=== PATIENT | female | born 1945 | race Caucasian/White ===

== ENCOUNTER → 2018-06-05 | Outpatient (CLI) | payer OTHER ==
[~2018-06-05] MED LIST: ASA5UEC PO; ASPIRIN325 PO; ASPIRIN81 M2 PO; ATIVAN0.5 MG PO; LEVAQUIN 250 M250 MG PO; LISINOPRIL10 MG PO; LISINOPRIL20 MG PO; LOPRESSOR25 PO; MAXZIDE-25 MG1 EACH PO; METOPROLOL SUCC50 MG PO; NORVASC5 MG PO; PROZAC20 MG PO; TOPROL XL100 MG PO; ZOLOFT50 MG PO
--- NOTE | 2018-06-05 16:34 | 2DMMODE ---
[place] [address] 2 D/M-MODE ECHOCARDIOGRAM Name: CHRIS CONRAD Room: [facility]#: [id number] Admission: 06/05/18 Attend Phys: Etelvina WHITFIELD Lui Discharge: Date of : 41 Date of Service: 06/05/18 1634 Report #: [id number] THIS REPORT FOR: //name// APPROVED REPORT Study performed: 06/05/2018 14:52:55 EXAM: Comprehensive 2D, Doppler, and color-flow Echocardiogram Patient Location: Out-Patient BSA: 1.85 HR: 61 bpm BP: 130/68 mmHg Other Information Study Quality: Good Indications Chest Pain Hypertension/HDD 2D Dimensions IVSd: 11.35 (7-11mm) LVOT Diam: 19.98 (18-24mm) LVDd: 45.04 mm PWd: 10.26 (7-11mm) Ascending Ao: 31.68 (22-36mm) LVDs: 26.27 (25-40mm) Aortic Root: 25.67 mm Volumes Left Atrial Volume (Systole) LA ESV Index: 40.00 mL/m2 Aortic Valve AoV Peak Lewis.: 1.68 m/s AO Peak Gr.: 11.30 mmHg LVOT Max P.71 mmHg AO Mean Gr.: 6.46 mmHg LVOT Mean P.82 mmHg LVOT Max V: 1.39 m/s AO V2 VTI: 38.18 cm LVOT Mean V: 0.90 m/s KAREN (VTI): 2.45 cm2 LVOT V1 VTI: 29.89 cm Mitral Valve E/A Ratio: 1.18 MV Decel. Time: 240.35 ms MV E Max Lewis.: 0.88 m/s MV PHT: 69.70 [place] [address] 2 D/M-MODE ECHOCARDIOGRAM Name: CHRIS CONRAD Room: [facility]#: [id number] Admission: 06/05/18 Attend Phys: Etelvina WHITFIELD Lui Discharge: Date of : 41 Date of Service: 06/05/18 1634 Report #: [id number] MVA (PHT): 3.16 cm2 TDI E/Lateral E': 7.33 E/Medial E': 14.67 Medial E' Lewis.: 0.06 m/s Lateral E' Lewis.: 0.12 m/s Pulmonary Valve PV Peak Lewis.: 0.91 m/s PV Peak Gr.: 3.28 mmHg Tricuspid Valve RAP Estimate: 5.00 mmHg TR Peak Gr.: 29.45 mmHg RVSP: 34.45 mmHg PA Pressure: 34.45 mmHg Left Ventricle The left ventricle is normal size. There is normal LV segmental wall motion. There is normal left ventricular wall thickness. The left ventricular systolic function is normal. The left ventricular ejection fraction is within the normal range. LVEF is 60-65%. The left ventricular diastolic function is normal. Right Ventricle The right ventricle is normal size. The right ventricular systolic function is normal. Atria Left atrium is mildly dilated. The right atrium size is normal. Aortic Valve Mild aortic valve sclerosis. No aortic regurgitation is present. There is no aortic valvular stenosis. Mitral Valve The mitral valve is normal in structure. Mild mitral regurgitation. No evidence of mitral valve stenosis. Tricuspid Valve The tricuspid valve is normal in structure. Trace tricuspid regurgitation. Pulmonic Valve The pulmonary valve is normal in structure. There is no pulmonic [place] [address] 2 D/M-MODE ECHOCARDIOGRAM Name: CHRIS CONRAD Room: [facility]#: [id number] Admission: 06/05/18 Attend Phys: Etelvina WHITFIELD Lui Discharge: Date of : 41 Date of Service: 06/05/18 1634 Report #: [id number] Great Vessels The aortic root is normal in size. IVC is normal in size and collapses >50% with inspiration. Pericardium There is no pericardial effusion. <Conclusion> The left ventricle is normal size. There is normal left ventricular wall thickness. The left ventricular systolic function is normal. The left ventricular ejection fraction is within the normal range. LVEF is 60-65%. The right ventricle is normal size. Left atrium is mildly dilated. Mild aortic valve sclerosis. No aortic regurgitation is present. There is no aortic valvular stenosis. The mitral valve is normal in structure. Mild mitral regurgitation. The tricuspid valve is normal in structure. IVC is normal in size and collapses >50% with inspiration. There is no pericardial effusion. There is normal LV segmental wall motion. <ELECTRONICALLY SIGNED> By: Franklyn Mehta MD, FACC 06/05/18 1634 1634 1634 Franklyn Mehta MD, FACC /INF
== END ==
LOC: M.CRD 05-11 10:27 → M.NUC 13:00 → M.CRD 13:00
DX: I08.0 Rheumatic disorders of both mitral and aortic valves (principal); I10 Essential (primary) hypertension; F41.9 Anxiety disorder, unspecified; F32.9 Major depressive disorder, single episode, unspecified; Z88.8 Allergy status to other drugs, medicaments and biological substances; Z88.2 Allergy status to sulfonamides; Z88.1 Allergy status to other antibiotic agents; Z68.31 Body mass index [BMI] 31.0-31.9, adult; Z78.9 Other specified health status

== ENCOUNTER 2020-10-15 15:08 | Inpatient (IN) | payer OTHER ==
[~2020-10-15] VITALS: Ht 160 cm; Wt 81.6 kg
[2020-10-15 15:14] VITALS: BP 155/119; BP 255/119
[2020-10-15] MEDS ORDERED: HYDRALAZINE 2525 MG PO (15:18)
[2020-10-15] MEDS ORDERED: PRINIVIL20 M1 PO (15:19)
[2020-10-15 16:08] LABS: ABSOLUTE EOSINOPHILS 0.1 thou/uL (0.0-0.7); ABSOLUTE LYMPHOCYTES 0.7 thou/uL (0.8-5.3); ABSOLUTE MONOCYTES 0.5 thou/uL (0.0-1.2); ABSOLUTE NEUTROPHILS 4.5 thou/uL (1.6-8.1); BASOPHILS 0.6 %; EOSINOPHILS 1.3 %; HEMATOCRIT 38.3 % (37.0-47.0); LYMPHOCYTES 12.5 %; MCH 32.8 pg (26.0-34.0); MCHC 33.9 g/dL (28.0-37.0); MCV 96.8 fL (80.0-100.0); MONOCYTES 8.8 %; MPV 9.4 fl. (7.2-11.1); NUCLEATED RBCS 0 /100WBC; PLATELET COUNT* 182 thou/uL (150-400); POLYS 76.8 %; RBC 3.95 mil/uL (4.20-5.00); RDW-CV 12.9 % (10.5-14.5); WBC 5.9 thou/uL (4.0-11.0)
--- NOTE | 2020-10-15 16:08 | EKG ---
[place] [address] ELECTROCARDIOGRAM REPORT Name: CHRIS CONRAD Room: [facility]#: [id number] Admission: 10/15/20 Attend Phys: Discharge: Date of : 41 Date of Service: 10/15/20 1526 Report #: [id number] THIS REPORT FOR: //name// [facility] ED Test Date: 2020-10-15 Test Time: 15:26:20 Pat Name: CHRIS CONRAD Department: Room: Gender: [employer]: : 1945 Requested By: Matt Shore Order Number: [id number] MD: Greg Hurst Measurements Intervals [place] Rate: 68 P: 52 CO: 168 QRS: -23 QRSD: 101 T: 9 QT: 446 QTc: 475 Interpretive Statements Sinus rhythm nonspecific st segment changes Probable left atrial enlargement Left ventricular hypertrophy Baseline wander in lead(s) V3 Compared to ECG 03/18/2016 14:47:51 No significant changes Electronically Signed On 10-15-2020 16:08:14 CDT by Greg Hurst [email or web address] <ELECTRONICALLY SIGNED> By: Greg Hurst MD, [facility] 10/15/20 1608 1526 1526 Greg Hurst MD, [facility] /EPI
[2020-10-15 16:26] LABS: CALCIUM 9.2 mg/dL (8.5-10.1); CREATININE 0.8 mg/dL (0.6-1.3); POTASSIUM 3.8 mmol/L (3.5-5.1)
[2020-10-15 22:15] VITALS: BP 159/97
[2020-10-16] VITALS (11 sets, daily range): BP systolic 146–227; BP diastolic 58–100
[2020-10-16] MEDS ORDERED: LOPRESSOR50 MG PO (07:12)
[2020-10-16] MEDS ORDERED: HYDRALAZINE 2525 M1 PO (07:12)
[2020-10-16] MEDS ORDERED: XANAX 0.5 MG0.5 M1 PO (07:12)
[2020-10-16] MEDS ORDERED: LISINOPRIL20 MG PO (07:14)
--- NOTE | 2020-10-16 12:43 | NUR ---
CM COMPLETED THE INITIAL ASSESSMENT WITH THE PT. PT INDICATED SHE LIVES ALONE IN HER HOME. PT HAS, BOTH, A CANE AND WALKER THAT "I USE WHEN THERE IS SNOW AND ICE." PT DENIES HX WITH HH OR SNF. PT IS ACTIVE, DRIVES A VEHICLE AND INDEPENDENT WITH ADLS. CM TO CONT TO FOLLOW.
--- NOTE | 2020-10-16 15:48 | 2DMMODE ---
[place] [address] 2 D/M-MODE ECHOCARDIOGRAM Name: CHRIS CONRAD Room: [address] [facility]#: [id number] Admission: 10/15/20 Attend Phys: Sarah Montiel Discharge: Date of : 41 Date of Service: 10/16/20 1548 Report #: [id number] THIS REPORT FOR: cc: Etelvina Lui Tammy RNP Liston, Michael J. MD [facility] ~ APPROVED REPORT Study performed: 10/16/2020 11:07:50 EXAM: Comprehensive 2D, Doppler, and color-flow Echocardiogram Patient Location: In-Patient Room #: [facility] Status: routine BSA: 1.85 HR: 61 bpm BP: 206/80 mmHg Rhythm: NSR Other Information Study Quality: Good Indications Hypertension/HDD 2D Dimensions IVSd: 12.05 (7-11mm) LVOT Diam: 19.55 (18-24mm) LVDd: 44.39 mm PWd: 10.14 (7-11mm) Ascending Ao: 35.13 (22-36mm) LVDs: 22.95 (25-40mm) Aortic Root: 33.33 mm Volumes Left Atrial Volume (Systole) LA ESV Index: 43.70 mL/m2 Aortic Valve AoV Peak Lewis.: 1.55 m/s AO Peak Gr.: 9.60 mmHg LVOT Max P.22 mmHg AO Mean Gr.: 6.17 mmHg LVOT Mean P.73 mmHg LVOT Max V: 1.75 m/s AO V2 VTI: 39.88 cm LVOT Mean V: 1.09 m/s KAREN (VTI): 3.17 cm2 LVOT V1 VTI: 42.11 [place] [address] 2 D/M-MODE ECHOCARDIOGRAM Name: CHRIS CONRAD Room: [address] [facility]#: [id number] Admission: 10/15/20 Attend Phys: Sarah Montiel Discharge: Date of : 41 Date of Service: 10/16/20 1548 Report #: [id number] Mitral Valve E/A Ratio: 1.80 MV Decel. Time: 250.70 ms MV E Max Lewis.: 1.01 m/s MV PHT: 72.70 ms MVA (PHT): 3.03 cm2 TDI E/Lateral E': 6.73 E/Medial E': 12.63 Medial E' Lewis.: 0.08 m/s Lateral E' Lewis.: 0.15 m/s Pulmonary Valve PV Peak Lewis.: 1.15 m/s PV Peak Gr.: 5.25 mmHg Tricuspid Valve RAP Estimate: 5.00 mmHg TR Peak Gr.: 27.88 mmHg RVSP: 32.00 mmHg PA Pressure: 32.00 mmHg Left Ventricle The left ventricle is normal size. There is normal LV segmental wall motion. There is normal left ventricular wall thickness. Left ventricular systolic function is normal. LVEF is 60-65%. Transmitral Doppler flow pattern suggests restrictive physiology. Right Ventricle The right ventricle is normal size. The right ventricular systolic function is normal. Atria Left atrium is moderately dilated. Right atrium is mildly dilated. Aortic Valve Mild aortic valve sclerosis. No aortic regurgitation is present. There is no aortic valvular stenosis. Mitral Valve There is mitral annular calcification. Mild mitral regurgitation. No evidence of mitral valve stenosis. Tricuspid Valve The tricuspid valve is normal in structure. Trace tricuspid regurgitation. Mild pulmonary hypertension. The RVSP is 40-[place] [address] 2 D/M-MODE ECHOCARDIOGRAM Name: CHRIS CONRAD Room: [address]#: [id number] Admission: 10/15/20 Attend Phys: Sarah Montiel Discharge: Date of : 41 Date of Service: 10/16/20 1548 Report #: [id number] Pulmonic Valve The pulmonary valve is normal in structure. Trace pulmonic regurgitation. Great Vessels The aortic root is normal in size. IVC is normal in size and collapses >50% with inspiration. Pericardium There is no pericardial effusion. <Conclusion> The left ventricle is normal size. There is normal left ventricular wall thickness. Left ventricular systolic function is normal. LVEF is 60-65%. Transmitral Doppler flow pattern suggests restrictive physiology. Mild aortic valve sclerosis. There is mitral annular calcification. Mild mitral regurgitation. Trace tricuspid regurgitation. Mild pulmonary hypertension. The RVSP is 40-45 mmHg. Trace pulmonic regurgitation. IVC is normal in size and collapses >50% with inspiration. Left atrium is moderately dilated. Right atrium is mildly dilated. <ELECTRONICALLY SIGNED> By: Ye Phipps MD, FACC 10/16/20 1548 1548 1548 Ye Phipps MD, FACC /INF
--- NOTE | 2020-10-16 17:12 | NUR ---
PATIENT ARRIVED FROM ER THIS AM. PATIENT SETTLED TO ROOM. HISTORY, ASSESSMENT AND VITALS COMPLETED AND DOCUMENTED. PATIENT HAS HIGH BLOOD PRESSURE, MEDICATIONS GIVEN ORDERED. PATIENT HAS CAROTID ULTRASOUND THIS AFTERNOON, DR VERAS NOTIFIED OF RESULTS. PATIENT DENIES ANY PAIN. PATIENT IS UPO AD PREETI IN ROOM. PATIENT DENIES ANY NEEDS AT THIS TIME. CALL LIGHT WITHN REACH.
[2020-10-16] MEDS ORDERED: LISINOPRIL10 MG PO (22:15)
[2020-10-17] VITALS (7 sets, daily range): BP systolic 144–222; BP diastolic 62–83
[2020-10-17 04:16] LABS: ABSOLUTE EOSINOPHILS 0.1 thou/uL (0.0-0.7); ABSOLUTE LYMPHOCYTES 1.3 thou/uL (0.8-5.3); ABSOLUTE MONOCYTES 0.6 thou/uL (0.0-1.2); ABSOLUTE NEUTROPHILS 2.5 thou/uL (1.6-8.1); BASOPHILS 0.7 %; EOSINOPHILS 3.2 %; HEMATOCRIT 34.4 % (37.0-47.0); HEMOGLOBIN 11.7 gm/dL (12.0-15.0); LYMPHOCYTES 27.9 %; MCH 33.2 pg (26.0-34.0); MCV 97.6 fL (80.0-100.0); MONOCYTES 12.2 %; MPV 9.6 fl. (7.2-11.1); NUCLEATED RBCS 0 /100WBC; PLATELET COUNT* 160 thou/uL (150-400); RBC 3.52 mil/uL (4.20-5.00); WBC 4.5 thou/uL (4.0-11.0)
[2020-10-17 04:37] LABS: CALCIUM 8.8 mg/dL (8.5-10.1); CREATININE 0.7 mg/dL (0.6-1.3); POTASSIUM 4.1 mmol/L (3.5-5.1)
[2020-10-17] MEDS ORDERED: HYDRALAZINE 2525 MG PO (13:34)
--- NOTE | 2020-10-17 14:40 | NUR ---
PATIENT DISCHARGED TO HOME. DISCHARGE PAPERS REVIEWED AND SIGNED. PRESCRIPTION TRANSMITTED TO [facility]. PATIENT DENIES ANY FURTHER NEEDS. PATIENT TAKEN BY WHEELCHAIR TO EXIT. LEFT WITH DAUGHTER.
== END 2020-10-17 14:38 | disposition home or self-care (01) | DRG 305 ==
LOC: M.ERS 15:08 → M.TBA-ER 18:18 → M.2W 18:18 → M.TBA-ER 10-16 07:15 → M.2W 10-16 08:59
PROVIDERS: Emergency Medicine; Internal Medicine; ADMIT Internal Medicine; ATTEND Internal Medicine
DX: I16.0 Hypertensive urgency (principal); I65.23 Occlusion and stenosis of bilateral carotid arteries; I10 Essential (primary) hypertension; J44.9 Chronic obstructive pulmonary disease, unspecified; F43.9 Reaction to severe stress, unspecified; Z20.822 Contact with and (suspected) exposure to COVID-19; M19.90 Unspecified osteoarthritis, unspecified site; Z88.2 Allergy status to sulfonamides; Z88.8 Allergy status to other drugs, medicaments and biological substances; Z87.891 Personal history of nicotine dependence; Z98.42 Cataract extraction status, left eye